=== PATIENT | female | born 1960 | race Caucasian/White ===

== ENCOUNTER 2017-11-01 10:07 | Outpatient (CLI) | payer OTHER | END 2017-11-01 10:08 | disposition home or self-care (01) | LOC: BICRAD 10:07 | PROVIDERS: ATTEND Internal Medicine | DX: M25.562 Pain in left knee (principal); M17.11 Unilateral primary osteoarthritis, right knee ==

== ENCOUNTER 2020-04-11 13:20 | Observation (INO) | payer BC, OTHER ==
[2020-04-11] MEDS ORDERED: Ondansetron PF 4 MG/2 ML Vial ONE (13:51)
[2020-04-11 14:09] LABS: Hemoglobin 15.3 g/dL (12.0-16.0); Mean Corpuscular HGB CONC 35.4 g/dL (32.0-36.0); Mean Corpuscular Hemoglobin 33.9 pg (27.0-31.0); Mean Corpuscular Volume 95.9 fL (78.0-98.0); Mean Platelet Volume 6.8 fL (7.4-10.4); Platelet Count 155 thou/uL (130-400); RBC Distribution Width 11.9 % (11.5-14.5); Red Blood Cell (RBC) Count 4.49 mill/uL (4.20-5.40); White Blood Cell (WBC) Count 8.3 thou/uL (4.8-10.8)
[2020-04-11 14:29] LABS: Band 16 % (5-11); Lymphocytes 3 % (21-51); MDiff Complete? YES; Monocytes 7 % (0-10); Neutrophil 70 % (42-75); Platelet Morphology Comment Appears Adequate; RBC Morphology Normal; Reactive Lymphocytes 4 % (0-10)
[2020-04-11 14:30] LABS: ALT (SGPT) 25 U/L (8-55); AST (SGOT) 38 U/L (5-34); Albumin 4.1 g/dL (3.4-4.8); Alkaline Phosphatase 62 U/L (40-110); Anion Gap 15 mmol/L (10-20); BUN (Urea Nitrogen) 6 mg/dL (9.8-20.1); Bilirubin, Total 1.5 mg/dL (0.2-1.2); CK (CPK) 44 U/L (29-168); Calc. Creatinine Clearance 0 mL/min (70-130); Calcium 8.8 mg/dL (7.8-10.44); Carbon Dioxide 26 mmol/L (23-31); Chloride 84 mmol/L (98-107); Estimated GFR-MDRD Greater than 90; Globulin 3.2 g/dL (2.4-3.5); Glucose 105 mg/dL (80-115); Lipase 6 U/L (8-78); Protein, Total 7.3 g/dL (6.0-8.3); Sodium 122 mmol/L (136-145)
[2020-04-11 14:35] LABS: Potassium 2.8 mmol/L (3.5-5.1)
--- NOTE | 2020-04-11 14:38 | RAD ---
AP CHEST: History: Chest pain. Comparison: None FINDINGS: I cannot exclude hazy infiltrate in the left lung base, which is poorly evaluated on this portable pr ojection. Lung alston otherwise clear. Vascular markings normal. Heart and mediastinum unremarkable. IMPRESSION: Hazy infiltrate in the left base is not excluded. If there is concern of pneumonia, recommend upright PA and lateral views of chest. POS: AGW
[2020-04-11] MEDS ORDERED: Potassium Chloride 10 MEQ in Premix Bag 1 BAG IVPB SCH (15:15)
[2020-04-11 16:09] LABS: Bacteria/HPF None Seen HPF (None Seen); Bilirubin Negative (Negative); Blood, Urine Negative (Negative); Clarity Turbid (Clear); Glucose, Urine (Dipstick) Normal (Negative); Leukocyte Negative Leu/uL (Negative); Nitrite Negative (Negative); Protein, Urine (Dipstick) 30 mg/dL (Neg-Trace); RBC/HPF 0-3 HPF (0-3); Urobilinogen 3 mg/dL (Less than 2); WBC/HPF 0-3 HPF (0-3)
--- NOTE | 2020-04-11 17:14 | RAD ---
TWO VIEW CHEST: History: Chest pain. FINDINGS: There is hazy opacity obscuring the left CP angle. This could represent an atelectasis or mild infilt rate. The lung alston are otherwise clear. A calcified granuloma in the upper left lung. Vasculature normal . Heart size normal. IMPRESSION: Hazy infiltrate or atelectasis in the left lung base near the CP angle. POS: AGW
--- NOTE | 2020-04-11 18:34 | PDOC.FPRHP ---
- History of Present Illness Chief Complaint: chest pain, palpitations History of Present Illness: This is a 60yo F with PMH of HTN who presented to the ER with a CC of intermittent chest pain and palpitations x 1 month. She presents to the ER because this morning she awoke with back pain. She describes the pain as dull in nature and aching. Pain is worsened with movement and was relieved by ASA given by EMS. She also endorses nause and vomiting x1 last night after quickly drinking a six pack of beers. She denies any SOB, abdominal pain, fever or diarrhea. ED Course: 125ml/hr NS + 1L NS, 1g Mg, 50mEq of K, 4 mg zofran - Allergies/Adverse Reactions Allergies Allergy/AdvReac Type Severity Reaction Status Date / Time Penicillins Allergy Verified 04/11/20 15:14 Sulfa (Sulfonamide Allergy Verified 04/11/20 21:49 Antibiotics) - Home Medications Medication Instructions Recorded Confirmed Type Aspirin [Luly Chewable] 81 mg PO DAILY 04/11/20 04/11/20 History Atenolol/Chlorthalidone 1 each PO DAILY 04/11/20 04/11/20 History [Atenolol-Chlorthalidone 50-25] - History PMHx: HTN PSHx: none FHx: HTN Social: drinks socially every week on the weekend; denies drug or tobacco use - Review of Systems General: denies: fever/chills, weight/appetite/sleep changes, night sweats, fatigue Eyes: denies: vision changes ENT: denies: nasal congestion, rhinorrhea Respiratory: denies: cough, congestion, shortness of breath, exercise intolerance Cardiovascular: reports: chest pain. denies: edema, paroxysmal nocturnal dyspnea, orthopnea Gastrointestinal: reports: nausea, vomiting. denies: diarrhea, constipation, abdominal pain Genitourinary: denies: dysuria Skin: denies: rashes Musculoskeletal: denies: pain, tenderness Neurological: denies: syncope, seizure, weakness Psychological: denies: anxiety, depression - Vital signs BP: 130/55, MAP: 80, Pulse: 66, Resp: 22, Temp: 99.1 (Oral), Pain: 0, O2 sat: 99 on (Room Air), Time: 04/11/2020 18:12. Weight 91kg BP: 111/56, MAP: 74, Pulse: 69, Resp: 22 (Non-Labored), Temp: 99.3 (Oral), Pain: 5, O2 sat: 95 on (Room Air), Time: 04/11/2020 13:58. - Physical Exam Constitutional: NAD, awake, alert and oriented HEENT: EOMI, grossly normal vision, grossly normal hearing Neck: supple, trachea midline Chest: no-tender to palpation Heart: RRR, normal S1/S2 Lungs: CTAB, no respiratory distress Abdomen: soft, non-tender Musculoskeletal: normal structure, normal tone Neurological: no focal deficit, normal sensation Skin: good turgor, capillary refill <2 seconds Heme/Lymphatic: no unusual bruising or bleeding, no purpura Psychiatric: normal mood and affect, good judgment and insight FMR H&P: Results - Labs Result Diagrams: 04/11/20 13:57 04/11/20 20:27 Lab results: WBC 8.3 thou/uL (4.8-10.8) 04/11/20 13:57 Hgb 15.3 g/dL (12.0-16.0) 04/11/20 13:57 Hct 43.1 % (36.0-47.0) 04/11/20 13:57 MCV 95.9 fL (78.0-98.0) 04/11/20 13:57 Plt Count 155 thou/uL (130-400) 04/11/20 13:57 Band Neuts % (Manual) 16 % (5-11) H 04/11/20 13:57 Sodium 122 mmol/L (136-145) L 04/11/20 13:57 Potassium 2.8 mmol/L (3.5-5.1) L* 04/11/20 13:57 Chloride 84 mmol/L (98-107) L 04/11/20 13:57 Carbon Dioxide 26 mmol/L (23-31) 04/11/20 13:57 BUN 6 mg/dL (9.8-20.1) L 04/11/20 13:57 Creatinine 0.61 mg/dL (0.6-1.1) 04/11/20 13:57 Glucose 105 mg/dL (80-115) 04/11/20 13:57 Calcium 8.8 mg/dL (7.8-10.44) 04/11/20 13:57 Total Bilirubin 1.5 mg/dL (0.2-1.2) H 04/11/20 13:57 AST 38 U/L (5-34) H 04/11/20 13:57 ALT 25 U/L (8-55) 04/11/20 13:57 Alkaline Phosphatase 62 U/L (40-110) 04/11/20 13:57 Creatine Kinase 44 U/L (29-168) 04/11/20 13:57 Serum Total Protein 7.3 g/dL (6.0-8.3) 04/11/20 13:57 Albumin 4.1 g/dL (3.4-4.8) 04/11/20 13:57 Lipase 6 U/L (8-78) L 04/11/20 13:57 Urine Ketones 10 mg/dL (Negative) A 04/11/20 15:26 Urine Blood Negative (Negative) 04/11/20 15:26 Urine Nitrite Negative (Negative) 04/11/20 15:26 Ur Leukocyte Esterase Negative Flower/uL (Negative) 04/11/20 15:26 Urine RBC 0-3 HPF (0-3) 04/11/20 15:26 Urine WBC 0-3 HPF (0-3) 04/11/20 15:26 Ur Squamous Epith Cells 4-6 HPF (0-3) A 04/11/20 15:26 Urine Bacteria None Seen HPF (None Seen) 04/11/20 15:26 FMR H&P: A/P - Plan Atypical chest pain A- Trop neg x 2. EKG normal. CXR with potential infiltrate. Suspect MSK pain P- Will trend troponin -Procal pending, will get phos, tsh -stress in the AM, npo at midnight Hyponatremia A- Na 122 on arrival. Pt reports to normally drink 32fl oz of water every day and appears somewhat dry on exam. P- continue IVF and monitor Na Hypokalemia A- K 2.8 on arrival. s/p 50mEq K in the ER. Likely 2/2 NV. P- will give 40meq more -Will continue to monitor and replace as needed Hypomagnesemia A- s/p 1g IV P- will give an additional 3g IV, recheck in AM COVID PUI A- hazy infiltrate in LLL seen on CXR. Suspect atelectasis P- covid swab, bnp, crp -droplet precautions HTN -home meds Dispo: admit to tele, observation CODE: FULL IVF: NS 100/hr Case discussed with Dr. Bustamante Addendum - Attending - Attending Attestation Date/Time: 04/11/202235 I personally evaluated the patient and discussed the management with Dr. Heart. I agree with the History, Examination, Assessment and Plan documented above with any addition or exceptions noted below. Back pain and palpitations resolved at time of my exam. No significant change in EKG from 2013. trop neg x3. given risk factors, NM stress tomorrow. Monitor BMP q6hr for hyponatremia. replacing other electrolytes. Dx. ACS r/o, mild asymptomatic hyponatremia, hypokalemia, hypomagnesimia, COVID r/o. Obs, tele.
[2020-04-11] MEDS ORDERED: Sodium Chloride 0.9% 1,000 ML IV SCH ×2 (20:41→22:40)
[2020-04-11] MEDS ORDERED: Ondansetron ODT 4 MG TAB PO PRN (20:41)
[2020-04-11] MEDS ORDERED: Magnesium Sulfate 3 GM in Sodium Chloride 0.9% 100 ML IVPB SCH (21:00)
[2020-04-11 21:43] VITALS: BMI 39.2
[2020-04-11 22:16] LABS: Anion Gap 17 mmol/L (10-20); BUN (Urea Nitrogen) 7 mg/dL (9.8-20.1); Calc. Creatinine Clearance 147 mL/min (70-130); Calcium 8.2 mg/dL (7.8-10.44); Carbon Dioxide 19 mmol/L (23-31); Chloride 92 mmol/L (98-107); Estimated GFR-MDRD Greater than 90; Glucose 95 mg/dL (80-115); Potassium 3.9 mmol/L (3.5-5.1); Sodium 124 mmol/L (136-145)
[2020-04-11 23:04] LABS: Anion Gap 13 mmol/L (10-20); BUN (Urea Nitrogen) 7 mg/dL (9.8-20.1); Calc. Creatinine Clearance 135 mL/min (70-130); Calcium 8.5 mg/dL (7.8-10.44); Carbon Dioxide 23 mmol/L (23-31); Chloride 93 mmol/L (98-107); Estimated GFR-MDRD Greater than 90; Glucose 102 mg/dL (80-115); Potassium 3.3 mmol/L (3.5-5.1); Sodium 126 mmol/L (136-145)
[2020-04-11 23:07] LABS: Phosphorus 1.7 mg/dL (2.3-4.7)
[2020-04-11] MEDS: Sodium Chloride 0.9% 1,000 ML IV SCH (23:24)
[2020-04-11] MEDS ORDERED: PHOS-NAK 1 PKT PACK PO SCH (23:30)
[2020-04-11] MEDS ORDERED: Potassium Chloride 20 MEQ TAB PO SCH (23:55)
[2020-04-12] MEDS: Sodium Chloride 0.9% 1,000 ML IV SCH (04:31)
[2020-04-12 04:40] LABS: #Monocytes 0.5 thou/uL (0.11-0.59); #Neutrophils 3.3 thou/uL (1.40-6.50); %Basophils 0.3 % (0.0-1.0); %Eosinophils 0.5 % (0.0-10.0); %Lymphocytes 20.8 % (21.0-51.0); %Monocytes 10.3 % (0.0-10.0); %Neutrophils 68.1 % (42.0-75.0); Hemoglobin 12.9 g/dL (12.0-16.0); Mean Corpuscular HGB CONC 36.5 g/dL (32.0-36.0); Mean Corpuscular Hemoglobin 35.2 pg (27.0-31.0); Mean Corpuscular Volume 96.6 fL (78.0-98.0); Mean Platelet Volume 6.8 fL (7.4-10.4); Platelet Count 132 thou/uL (130-400); RBC Distribution Width 11.9 % (11.5-14.5); Red Blood Cell (RBC) Count 3.67 mill/uL (4.20-5.40); White Blood Cell (WBC) Count 4.8 thou/uL (4.8-10.8)
[2020-04-12 04:50] LABS: Anion Gap 8 mmol/L (10-20); BUN (Urea Nitrogen) 6 mg/dL (9.8-20.1); Calc. Creatinine Clearance 140 mL/min (70-130); Carbon Dioxide 29 mmol/L (23-31); Chloride 99 mmol/L (98-107); Estimated GFR-MDRD Greater than 90; Glucose 93 mg/dL (80-115); Magnesium 2.4 mg/dL (1.6-2.6); Potassium 3.6 mmol/L (3.5-5.1); Sodium 132 mmol/L (136-145)
--- NOTE | 2020-04-12 06:01 | PDOC.FM ---
- Subjective Subjective: Patient feeling better, denies any complaints of pain including no chest pain or back pain. Patient attributes her pain to sleeping on a new mattress. Patient expresses desire to go home and expresses interest in completing stress test as an outpatient. - Objective MAR Reviewed: Yes Vital Signs & Weight: Vital Signs (12 hours) Temp Pulse Resp BP BP Pulse Ox 04/12/20 04:15 99.0 F 68 20 123/58 L 96 04/11/20 23:20 99.1 F 69 20 124/54 L 97 04/11/20 20:37 98.9 F 70 22 H 138/60 98 Weight Weight 91.081 kg I&O: 04/10/20 04/11/20 04/12/20 06:59 06:59 06:59 Intake Total 1040 Output Total 1250 Balance -210 Result Diagrams: 04/12/20 04:16 04/12/20 04:16 Phys Exam - Physical Examination Constitutional: NAD physical exam per Dr. Trinidad HEENT: moist MMs Neck: supple Respiratory: no wheezing, no rhonchi, clear to auscultation bilateral Cardiovascular: RRR, no significant murmur Gastrointestinal: no distention Musculoskeletal: no edema, pulses present Neurological: non-focal, moves all 4 limbs Psychiatric: normal affect, A&O x 3 Skin: no rash, normal turgor Dx/Plan (1) Atypical chest pain Code(s): R07.89 - OTHER CHEST PAIN Status: Acute (2) Hyponatremia Code(s): E87.1 - HYPO-OSMOLALITY AND HYPONATREMIA Status: Acute (3) Hypokalemia Code(s): E87.6 - HYPOKALEMIA Status: Acute (4) Hypomagnesemia Code(s): E83.42 - HYPOMAGNESEMIA Status: Acute (5) Person under investigation for COVID-19 Code(s): Z20.828 - CONTACT W AND EXPOSURE TO OTH VIRAL COMMUNICABLE DISEASES Status: Acute - Plan Plan: Patient is a 60 yo female who presents with atypical chest pain is admitted for ACS r/o: #Atypical chest pain -Trop neg x 3. EKG normal. CXR with potential LLL infiltrate vs atelectasis. Suspect MSK pain as cause of chest pain -Procal 0.09, CRP 2.35 -Phos 1.7, s/p repletion with Phos-Nak -stress test once COVID testing results #Hyponatremia -Na 122 on arrival. Pt reports to normally drink 32fl oz of water every day and appears somewhat dry on exam. Na up to 132 this AM -continue IVF and monitor BMP #Hypokalemia -K 2.8 on arrival. s/p 50mEq K in the ER. Likely 2/2 NV. K up to 3.6 this AM -Will continue to monitor and replace as needed #Hypomagnesemia -s/p 1g IV in ED and 3 g IV on floor -monitor with AM labs, Mg up to 2.4 this AM #COVID PUI -hazy infiltrate in LLL seen on CXR. Suspect atelectasis -covid swab pending -bnp 176, crp 2.35 -droplet precautions #HTN -home meds Diet: NPO pending stress test VTE: Lovenox CODE: FULL IVF: NS 100/hr Dispo: Stable, admitted to obs on telemetry unit. Plan for stress test once COVID results. Anticipate LOS <48 hours. Addendum - Attending - Attending Attestation Date/Time: 04/12/20 1600 I personally evaluated the patient and discussed the management with Dr. Miller I agree with the History, Examination, Assessment and Plan documented above with any addition or exceptions noted below- Patient without complaints. No further pain. Patient feels the pain is related to a new mattress. Denies any SOB, cough. Would like to go home. Afebrile VSS. A/P: 1) Atypical chest pain - troponin negative x 3. HEART score = 2. Will d/c home.
[2020-04-12] MEDS ORDERED: Enoxaparin Sodium 40 MG/0.4 ML SYRINGE SC SCH (09:00)
[2020-04-12 13:25] VITALS: BP 133/69; TEMP 97.3
[2020-04-12 14:13] LABS: SARS-CoV-2 MS2 Positive; SARS-CoV-2 N Gene Negative; SARS-CoV-2 S Gene Negative; SARS-CoV-2 orf1ab Negative
--- NOTE | 2020-04-13 11:52 | DIS ---
DATE OF ADMISSION: 04/11/2020 DATE OF DISCHARGE: 04/12/2020 PRIMARY CARE PHYSICIAN: Ankur Mcdonald MD RESIDENT: Jennifer Miller DO ADMITTING ATTENDING: Corona Bustamante MD DISCHARGE ATTENDING: Karla Trinidad MD CONSULTS: None. PROCEDURES: Chest x-ray on April 11, 2020: Hazy infiltrate in the left base is not excluded. Heart and mediastinum unremarkable. PRIMARY DIAGNOSIS: Atypical chest pain, suspected musculoskeletal pain. SECONDARY DIAGNOSES: 1. Hyponatremia. 2. Hypokalemia. 3. Hypomagnesemia. 4. COVID person under investigation, COVID negative. 5. Hypertension. DISCHARGE MEDICATIONS: 1. Aspirin 81 mg p.o. daily. 2. Atenolol/chlorthalidone 50-25 mg one tablet p.o. daily. DISCONTINUED MEDICATIONS: None. HISTORY OF PRESENT ILLNESS/HOSPITAL COURSE: The patient is a 60-year-old female with past medical history of hypertension, who presented to the [facility] Emergency Department on April 11 with a complaint of intermittent chest pain and palpitations for about one month. She decided to come to the emergency room because earlier in the morning, she awoke with back pain, which was dull in nature and aching. The pain worsened with movement and was relieved by aspirin given by EMS. The patient also had nausea and vomiting the previous night after quickly drinking a six pack of beers. She denied any shortness of breath, abdominal pain, fever, or diarrhea at the time. In the Emergency Department, she was given a normal saline bolus and continued on normal saline maintenance fluids, 1 g magnesium, 50 mEq of potassium, and 4 mg of Zofran. The patient was admitted to observation on the telemetry unit for atypical chest pain, ACS rule out. Her troponins were trended and were negative x2. EKG was normal. The patient's chest pain origin was suspected to be musculoskeletal in nature. Of note, the patient had several electrolyte abnormalities upon admission including a sodium of 122, potassium 2.8, and magnesium 1.3. These electrolytes were all replaced. The patient's initial chest x-ray was suspicious for a potential left lower lobe infiltrate versus atelectasis. Because of this, the ED provider decided to COVID swab the patient. COVID swab returned negative on the afternoon of April 12, 2020. The patient did have a stress test ordered, but this was unable to be completed due to being a COVID rule out. The patient did not want to wait in the hospital to have the stress test done. Given that her pain was likely not related to ACS, the patient was counseled about Cardiology follow up and provided with information for [facility]. She will need an outpatient stress test completed in the near future. DISPOSITION: Stable. DISCHARGE INSTRUCTIONS: 1. Location: Home. 2. Diet: Heart healthy. 3. Activity: As tolerated. 4. Follow up with PCP, Dr. Mcdonald in 3 to 5 days. 5. Follow up with a 2nd pressman at [facility] in the next 3 to 4 weeks. Job ID: [id number]
== END 2020-04-12 17:27 | disposition home or self-care (01) ==
LOC: ERS 13:20 → 2SW 21:21 → INTOOBSV 21:21
PROVIDERS: ADMIT Family Medicine; ATTEND Family Medicine
DX: R07.89 Other chest pain (principal); E87.1 Hypo-osmolality and hyponatremia; E87.6 Hypokalemia; E83.42 Hypomagnesemia; I10 Essential (primary) hypertension; R00.2 Palpitations; R91.8 Other nonspecific abnormal finding of lung field; Z20.828 Contact with and (suspected) exposure to other viral communicable diseases; Z79.82 Long term (current) use of aspirin; Z79.899 Other long term (current) drug therapy; Z88.0 Allergy status to penicillin; Z88.2 Allergy status to sulfonamides
CPT/HCPCS: 36415; 71045; 71046; 80048; 80053; 81003; 81015; 82550; 83690; 83735; 83880; 84100; 84145; 84443; 84484; 85025; 86140; 87635; 93005; 94760; 96361; 96365; 96367; 96372; 96375; 96376; G0378; J1650; J2405; J3475; J3480; J3490; U0003

== ENCOUNTER 2020-05-13 12:59 | Emergency (ER) | payer BC ==
[2020-05-13] MEDS ORDERED: Adenosine 6 MG/2 ML VIAL ONE (13:08)
--- NOTE | 2020-05-13 13:32 | RAD ---
EXAM: Single view of the chest HISTORY: Chest pain COMPARISON: None FINDINGS: Single view of the chest shows a normal sized cardiomediastinal silhouette. There is no tequila dence of consolidation, mass, or pleural effusion. Degenerative changes are seen in the spine. IMPRESSION: No evidence of acute cardiopulmonary disease
[2020-05-13 13:59] LABS: #Eosinphils 0.5 thou/uL (0.0-0.7); #Lymphocytes 0.9 thou/uL (1.20-3.40); #Monocytes 0.3 thou/uL (0.11-0.59); #Neutrophils 1.2 thou/uL (1.40-6.50); %Basophils 1.1 % (0.0-1.0); %Eosinophils 15.8 % (0.0-10.0); %Lymphocytes 31.2 % (21.0-51.0); %Neutrophils 41.9 % (42.0-75.0); Hemoglobin 14.1 g/dL (12.0-16.0); Mean Corpuscular HGB CONC 33.8 g/dL (32.0-36.0); Mean Corpuscular Hemoglobin 34.6 pg (27.0-31.0); Mean Platelet Volume 6.6 fL (7.4-10.4); Platelet Count 155 thou/uL (130-400); Red Blood Cell (RBC) Count 4.09 mill/uL (4.20-5.40); White Blood Cell (WBC) Count 2.9 thou/uL (4.8-10.8)
[2020-05-13 14:52] LABS: ALT (SGPT) 24 U/L (8-55); AST (SGOT) 37 U/L (5-34); Alkaline Phosphatase 74 U/L (40-110); Anion Gap 15 mmol/L (10-20); BUN (Urea Nitrogen) 7 mg/dL (9.8-20.1); Bilirubin, Total 0.6 mg/dL (0.2-1.2); CK (CPK) 28 U/L (29-168); Calc. Creatinine Clearance 0 mL/min (70-130); Calcium 9.2 mg/dL (7.8-10.44); Carbon Dioxide 20 mmol/L (23-31); Chloride 106 mmol/L (98-107); Estimated GFR-MDRD 85; Globulin 3.4 g/dL (2.4-3.5); Glucose 96 mg/dL (80-115); Magnesium 1.5 mg/dL (1.6-2.6); Potassium 3.8 mmol/L (3.5-5.1); Protein, Total 7.4 g/dL (6.0-8.3); Sodium 137 mmol/L (136-145)
== END 2020-05-13 15:37 | disposition home or self-care (01) ==
LOC: ERS 12:59
DX: I47.1 Supraventricular tachycardia (principal); I10 Essential (primary) hypertension; F41.9 Anxiety disorder, unspecified; Z79.82 Long term (current) use of aspirin; Z79.899 Other long term (current) drug therapy
CPT/HCPCS: 36415; 71045; 80053; 82550; 83735; 84443; 84484; 85025; 93005; 96374; J0153

== ENCOUNTER 2023-01-31 14:48 | Outpatient (CLI) | payer BC | END 2023-01-31 14:49 | disposition home or self-care (01) | LOC: BICRAD 14:48 | PROVIDERS: ATTEND Student in an Organized Health Care Education/Training Program | DX: E66.9 Obesity, unspecified (principal); M17.11 Unilateral primary osteoarthritis, right knee; M25.762 Osteophyte, left knee; M25.761 Osteophyte, right knee | CPT/HCPCS: 73565 ==

== ENCOUNTER 2024-08-28 13:36 | Emergency (ER) | payer MEDICARE ==
[2024-08-28 16:34] LABS: Bacteria/HPF 2+ HPF (None Seen); Bilirubin Negative (Negative); Blood, Urine 1+ (Negative); CAUTI Indications for Culture Dysuria,urgency,freq; Clarity Turbid (Clear); Glucose, Urine (Dipstick) Normal (Negative); Ketone, Urine Negative (Negative); Leukocyte 500 Leu/uL (Negative); Nitrite Negative (Negative); Protein, Urine (Dipstick) 70 mg/dL (Neg-Trace); RBC/HPF 21-50 HPF (0-3); Specific Gravity, Urine 1.024 (1.002-1.036); WBC/HPF Greater than 50 HPF (0-3); pH, Urine 5.5 (5.0-9.0)
[2024-08-28 16:53] LABS: Transitional Epithelial 0-3 HPF (None Seen)
[2024-08-28 16:54] LABS: Urine Culture Reflex Yes Yes
== END 2024-08-28 17:04 | disposition home or self-care (01) ==
LOC: ERS 13:36
DX: N39.0 Urinary tract infection, site not specified (principal); I10 Essential (primary) hypertension; Z79.82 Long term (current) use of aspirin; Z79.899 Other long term (current) drug therapy
CPT/HCPCS: 81001; 87077; 87086; 87186; 99283